=== PATIENT | female | born 1990 | race Caucasian/White ===

== ENCOUNTER 2018-04-17 19:21 | Inpatient (IN) | payer BC ==
[2018-04-17] MEDS ORDERED: Dinoprostone* 10 MG VAG.SUPP VAGINAL ONE (19:43)
[2018-04-18] MEDS ORDERED: Misoprostol TAB* 100 MCG VAGINAL ONE (09:56)
[2018-04-18] MEDS ORDERED: Misoprostol TAB* 100 MCG ONE (10:00)
--- NOTE | 2018-04-18 10:13 | PN ---
Progress Note - Progress Note Date of Service: 04/18/18 SOAP: Subjective: [Pt comfortable, does report some mild intermittent cramping Reports active FM] Objective: [Cervical exam: FT, 50%, posterior, -1 FHR 150, mod gabrielle, + accels, no decels] Assessment: [27 year old at 40 5/7 weeks gestation, not in labor, cervix still unfavorable, membranes intact, with no evidence of acidemia, Cat I tracing ] Plan: [Discussed options with pt. Needs additional cervical ripening. Will try vaginal misoprostol. Pt in agreement with plan. Monitoring per protocol. Will continue outpt status at this time. ]
--- NOTE | 2018-04-18 14:43 | PN ---
Progress Note - Progress Note Date of Service: 04/18/18 SOAP: Subjective: [Pt reports continued mild cramping, similar to before. Reports active FM. Coping well emotionally with induction. and mother at bedside, supportive. ] Objective: [Cervical exam: Posterior/ fingertip/ 60%/ -2/ softer than previous FHR Cat I Mild UCs Q 3-8 minutes] Assessment: [27 year old at 40 5/7 weeks gestation here for elective IOL No evidence of acidemia Cervical ripening occurring, but remains unfavorable for Pitocin induction at this time] Plan: [Continue augmentation. Misoprostol 25 mcg placed vaginally]
--- NOTE | 2018-04-19 00:52 | HP ---
General Information - Reason for Visit elective induction of labor - General Information Maternal Age: 27 Grav: 1 Para: 0 SAB: 0 IEA: 0 Estimated Due Date: 04/13/18 Determined By: Early Ultrasound Maternal Blood Type and Rh: O Positive - Results this Serology/RPR Result: Non-Reactive Rubella Result: Immune HBsAg Result: Negative HIV Result: Negative GBS Culture Result: Negative Past Medical History Delivery History: See Records - primiparous Pertinent Past Medical History: See Records - depression/ anxiety, chronic back pain, GERD Pertinent Past Surgical History: See Records - right foot surgery Pertinent Family History: Non-Contributory - Antepartal Records Antepartal Records: Reviewed, Uncomplicated Review of Systems Constitutional: Comfortable CV Complaint: No Respiratory: Shortness of Breath: No Gastrointestinal: No Nausea/Vomiting, Normal Bowel Movement Genitourinary: No Dysuria, No Bleeding, No Leaking Fluid Musculoskeletal: No Complaint, No Epigastric Pain Neurological: No Headache, No Visual Changes Movement: Normal Exam Allergies/Adverse Reactions: Allergies No Known Allergies Allergy (Verified 04/18/18 10:11) T-98.2, P-96, R-18, BP-139/85 - Measurements Height: 5 ft 6 in Weight: 106.594 kg Weight in lbs: 235.296201 Body Mass Index (BMI): 37.9 Pre- Weight: 86.183 kg Weight Gained This : 45 lbs and 0 ozs - Exam Breast: Breast Exam Deferred CVA: No CVA Tenderness Extremities: No Edema Heart: Normal Rhythm/Heart Sounds HEENT: No Significant Findings Lungs: Clear Bilaterally Rectal: Rectal Exam Deferred Reflexes: DTR 2+ Thyroid: No Thyromegaly - Abdominal Exam Abdomen Exam: Non-Tender, Fundal Height Consistent with Dates - Ultrasound/Biophysical Profile Ultrasound Status: Not Done Targeted Exam Findings See L&D Outpatient Visit Provider Note for Findings: Yes Estimated Weight: 8# Cervical Exam: 1cm - 1-2 cm Effacement: 60% Station: -2 Presenting Part: Vertex Membrane Status: Intact Bleeding/Discharge: None EFM Findings - External Monitor Findings Baseline Heart Rate: 150 External Monitor Findings: Accelerations Present, No Pattern of Variable or Late Decelerations, Variability Moderate, Baseline Stable Contractions: Regular, Mild, < 45 Seconds Contraction Frequency: 3 minutes Assessment/Plan - Assessment 27 year old at 40 5/7 weeks gestation undergoing cervical ripening for elective induction of labor. No evidence of acidemia - Obstetrical Risk Factors Obstetrical Risk Factors: Post-Dates - Plan Plan: Cervical Ripening, Admit - Anticipate Vaginal Delivery Plan Comment: Cervical ripening has been in place, will monitor over night and consider Pitocin vs cervical ripening in AM - Date/Time of Admission Date of Admission: 04/18/18 Time of Admission: 22:12
[2018-04-19 08:58] LABS: ABS Basophils 0.1 10^3/ul (0-0.2); ABS Eosinophils 0.1 10^3/ul (0-0.6); ABS Lymphocytes 2.8 10^3/ul (1.0-4.8); ABS Monocytes 0.7 10^3/ul (0-0.8); ABS Neutrophils 9.2 10^3/ul (1.5-7.7); ABS Nucleated RBC 0 10^3/ul; Hematocrit 35 % (35-47); Hemoglobin 11.9 g/dl (12.0-16.0); Mean Corpuscular HGB Conc 34 g/dl (31-36); Mean Corpuscular Hemoglobin 27 pg (27-31); Mean Corpuscular Volume 80 fL (80-97); Mean Platelet Volume 8.6 um3 (7.4-10.4); Nucleated Red Blood Cells % 0; Platelet Count 259 10^3/ul (150-450); Red Blood Count 4.37 10^6/ul (4.00-5.40); Red Cell Distribution Width 14 % (10.5-15); White Blood Count 12.9 10^3/ul (3.5-10.8)
[2018-04-19] MEDS ORDERED: Oxytocin in LR* 20 UNITS/1,000 ML BAG IVPB SCH (09:00)
[2018-04-20] MEDS: Oxytocin in LR* 20 UNITS/1,000 ML BAG IVPB SCH (07:51)
--- NOTE | 2018-04-20 21:46 | PN ---
Progress Note - Progress Note Date of Service: 04/20/18 - Note time 2014 SOAP: Subjective: [Pt reports contractions are stronger, feels shaky, having trouble getting comfortable. Would like VE] Objective: [Pit @ 17 VE 4-5/90/0 FHT 135, cat 1 UCs q 2-3 min, 60+ sec] Assessment: [Labor] Plan: [Discussion of using nitrous; patient declines for now, feels she is coping ok. May return to tub. ]
--- NOTE | 2018-04-20 22:52 | PN ---
Progress Note - Progress Note Date of Service: 04/20/18 SOAP: Subjective: [Pt working well w/ ctx, breathing through them, was using tub, but now out and requested vaginal exam. After finding she was 5cm she requests Nitronox. Reports active FM] Objective: [FHR tracing:Baseline 140/ + accels/ mod variability/ no decels UC's 2-3 minutes/ moderate/ 40-80 seconds, Pitocin at 15 mu/min VE: 5cm/ -1/ posterior/ 90% effaced] Assessment: [27 year old undergoing elective IOL, in active labor with ruptured membranes, requesting Nitronox Cat I FHR tracing, no evidence of acidemia] Plan: [Continue Pitocin Will order Nitronox for pain relief ]
--- NOTE | 2018-04-21 00:55 | PN ---
Progress Note - Progress Note Date of Service: 04/21/18 SOAP: Subjective: [Pt working well with ctx, reports increased pressure, some bloody show when using the bathroom, shaky, vomited x1 Pt reports Nitronox helping "take the edge off"] Objective: [Pitocin at 11 mu/min FHR- Baseline 140, moderate variability, no accels, no decels UCs Q 2-3 minutes, mod to strong ] Assessment: [Pt coping well with Nitronox Labor appears to be progressing, although cervical exam deferred at this time FHR Cat I] Plan: [Continue augmenting with Pitocin Continue Nitronox for pain relief Will do cervical exam when pt requests, with urge to push, or if no change in next couple hours]
[2018-04-21] MEDS ORDERED: OBEPIDURAL* 0 ML EPIDURAL ONE (01:52)
[2018-04-21] MEDS ORDERED: OBEPIDURAL* 250 ML EPIDURAL ONE (01:53)
--- NOTE | 2018-04-21 02:07 | PN ---
Progress Note - Progress Note Date of Service: 04/21/18 SOAP: Subjective: [Pt increasingly uncomfortable. Requested vaginal exam, 6cm/midline/ 90%/ -1. Pt requests epidural. Discussed risks and benefits, Dr. Loo notified. ] Objective: [FHR-130 baseline, mod variability, + accels, no decels, Cat I Ctx 1-3 minutes, mod to strong, 60-90 seconds Pitocin at 13 mu/ min BPs mildly elevated 130's-140's/ 80's ] Assessment: [Pt making progress, although slowly Requesting epidural No evidence of acidemia] Plan: [Labor epidural Continue Pitocin Once comfortable, alternate sides with peanut ball if tolerates]
[2018-04-21] MEDS ORDERED: Sodium Citrate/Citric Acid* 15 ML UDC PO PRN (02:19)
[2018-04-21] MEDS ORDERED: Famotidine TAB* 20 MG PO PRN (02:19)
[2018-04-21] MEDS ORDERED: Phenylephrine IV* 40 MCG/ML 10 ML SYRINGE IV PUSH PRN (02:19)
[2018-04-21] MEDS ORDERED: EPHEDrine (Pressors)* 50 MG/ML VIAL IV PUSH PRN (02:19)
--- NOTE | 2018-04-21 03:15 | PN ---
Progress Note - Progress Note Date of Service: 04/21/18 SOAP: Subjective: [] Objective: [] Assessment: [] Plan: []
[2018-04-21 03:43] LABS: ABS Basophils 0.1 10^3/ul (0-0.2); ABS Eosinophils 0 10^3/ul (0-0.6); ABS Monocytes 0.5 10^3/ul (0-0.8); ABS Neutrophils 17.8 10^3/ul (1.5-7.7); ABS Nucleated RBC 0 10^3/ul; Eosinophil % 0 % (0-6); Hematocrit 33 % (35-47); Lymphocyte % 9.8 % (25-47); Mean Corpuscular HGB Conc 33 g/dl (31-36); Mean Corpuscular Hemoglobin 26 pg (27-31); Mean Corpuscular Volume 80 fL (80-97); Mean Platelet Volume 8.9 um3 (7.4-10.4); Nucleated Red Blood Cells % 0; Platelet Count 259 10^3/ul (150-450); Red Blood Count 4.15 10^6/ul (4.00-5.40); Red Cell Distribution Width 14 % (10.5-15); White Blood Count 20.3 10^3/ul (3.5-10.8)
[2018-04-21 03:52] LABS: EGFR Non-African American 117.3 (>60); Uric Acid 5.1 mg/dL (2.3-6.6)
[2018-04-21] MEDS: OBEPIDURAL* 250 ML EPIDURAL SCH (03:59)
--- NOTE | 2018-04-21 06:55 | PN ---
Progress Note - Progress Note Date of Service: 04/21/18 SOAP: Subjective: [Previous SOAP note did not appear to save. Pt had period of elevated BP's following epidural, ranging from 134/87 to 173/84. Dr. Pineda was consulted, did not recommend antihypertensives at that time. CBC, CMP, uric acid were drawn. Since then, BPs have normalized, now ranging from 111/61 to 132/83. Bloodwork was unremarkable except for an elevated WBC of 20.3. Pt afebrile. At this time, pt reports increased pressure and shakiness. Otherwise comfortable with epidural. ] Objective: [FHR-130 baseline, moderate variability, +accels, no decels, Cat I UCs approx every 2-3 minutes, [place] adjusted Cervical exam: 9cm/ 100%/ 0 station Urine output approx 75 cc/ hr Pitocin at 13 mu/ min Membranes ruptured over 14 hours ] Assessment: Elevated BPs have resolved at this time Pt progressing well, laboring down. ] Plan: [Continue to labor down until urge to push Continue Pitocin per protocol Anticipate . ]
[2018-04-21] MEDS: Oxytocin in LR* 20 UNITS/1,000 ML BAG IVPB SCH (08:54)
[2018-04-21] MEDS ORDERED: fentaNYL* 50 MCG/ML 2 ML VIAL (100 MCG VIAL) ONE (10:21)
[2018-04-21] MEDS ORDERED: fentaNYL* 50 MCG/ML 2 ML VIAL (100 MCG VIAL) IV SLOW PU ONE (10:45)
[2018-04-21] MEDS ORDERED: Witch Hazel PAD* JAR TOPICAL PRN (11:18)
[2018-04-21] MEDS ORDERED: Glycerin ADULT SUPP PR PRN (11:18)
[2018-04-21] MEDS: Docusate CAP* 100 MG PO SCH (15:44)
--- NOTE | 2018-04-21 17:09 | PROCNOTE ---
[facility] OB: Delivery Note - Delivery A Date of : 04/21/18 Time of : 09:57 [place] Sex: Male Weight at : 3.625 kg Score 1 Minute: 9 Score 5 Minutes: 9 Gestational Age in Weeks and Days at Delivery: 41 Weeks and 1 Days Delivery Method: Spontaneous Vaginal Labor: Induced Did Patient attempt ?: N/A, No Previous Amniotic Fluid: Clear Estimated Blood Loss: 300 Anesthesia/Analgesia: CEI for Labor, Nitrous-Labor Delivered By: Slime Washburn - Nursery Level of Nursery: Regular/Bedside - Perineum Perineal Injury: Perineal Laceration, 1st Degree Perineal Repair: By Delivering Practioner - Events Delivery Events of Note: Pitocin During Labor, Protracted/Long Labor - Additional Delivery Notes Additional Delivery Notes: Pt admitted on 04/18/18 for elective induction of labor at 40 5/7 weeks gestation. Cervical ripening done with Cervidil, Cytotec, and Sandoval bulb. Pitocin was then initiated. Pt used nitrous oxide for pain relief for several hours before requesting and receiving epidural. She then rested and continued to labor until full dilation and an urge to push. Pt pushed with good effort and made consistent progress despite contractions only occurring every 5 or more minutes. Pt progressed to . Infant head delivered OA to SERGIO w/ turtle sign. Emergency montoya initiated for possible shoulder dystocia, but shoulders then delivered without difficulty with next push. placed on maternal abdomen, dried and stimulated with vigorous cry. After waiting for pulsation to cease, cord clamped and cut by 's father. Placenta delivered , spontaneous and zarate. Pitocin increased to 250 cc/ hr. Fundas was firm with minimal bleeding. Pt sustained first degree perineal laceration, repaired using absorbable suture with good tissue approximation and hemostasis. breastfed during repair. Pt and in stable condition, anticipate normal course.
[2018-04-21] MEDS: Ibuprofen TAB* 600 MG PO PRN (17:47)
[2018-04-22] MEDS: Docusate CAP* 100 MG PO SCH ×5 (00:12→20:20)
[2018-04-22] MEDS: Acetaminophen TAB* 325 MG PO PRN ×2 (00:12→16:25)
[2018-04-22] MEDS: Ibuprofen TAB* 600 MG PO PRN ×4 (00:12→20:17)
[2018-04-22 07:10] LABS: ABS Basophils 0 10^3/ul (0-0.2); ABS Eosinophils 0.1 10^3/ul (0-0.6); ABS Lymphocytes 4.1 10^3/ul (1.0-4.8); ABS Monocytes 0.8 10^3/ul (0-0.8); ABS Neutrophils 6.5 10^3/ul (1.5-7.7); ABS Nucleated RBC 0 10^3/ul; Eosinophil % 1.1 % (0-6); Hematocrit 30 % (35-47); Hemoglobin 9.8 g/dl (12.0-16.0); Lymphocyte % 35.5 % (25-47); Mean Corpuscular HGB Conc 33 g/dl (31-36); Mean Corpuscular Hemoglobin 27 pg (27-31); Mean Corpuscular Volume 80 fL (80-97); Mean Platelet Volume 8.1 um3 (7.4-10.4); Nucleated Red Blood Cells % 0; Platelet Count 226 10^3/ul (150-450); Red Blood Count 3.68 10^6/ul (4.00-5.40); Red Cell Distribution Width 15 % (10.5-15); White Blood Count 11.6 10^3/ul (3.5-10.8)
[2018-04-22] MEDS: Ferrous Gluconate TAB* 324 MG TAB PO SCH ×2 (09:43→20:17)
[2018-04-22] MEDS: Dibucaine 1% 28.35 GM TUBE PR PRN (11:32)
[2018-04-22] MEDS: OBEPIDURAL* 250 ML EPIDURAL SCH (19:14)
[2018-04-23 08:00] VITALS: BP 117/65
[2018-04-23] MEDS: Ibuprofen TAB* 600 MG PO PRN (08:20)
[2018-04-23] MEDS: Ferrous Gluconate TAB* 324 MG TAB PO SCH (08:20)
[2018-04-23] MEDS: Dibucaine 1% 28.35 GM TUBE PR PRN (12:09)
== END 2018-04-23 12:31 | disposition home or self-care (01) | DRG 560 ==
LOC: MCHOBOUT 19:21 → MCHOB 04-18 22:12
PROVIDERS: ADMIT Midwife; ATTEND Midwife
PROC: 10E0XZZ Delivery of Products of Conception, External Approach (ICD-10-PCS; principal; 2018-04-21)
PROC: 3E033VJ Introduction of Other Hormone into Peripheral Vein, Percutaneous Approach (ICD-10-PCS; 2018-04-21)
PROC: 10907ZC Drainage of Amniotic Fluid, Therapeutic from Products of Conception, Via Natural or Artificial Opening (ICD-10-PCS; 2018-04-21)
PROC: 0HQ9XZZ Repair Perineum Skin, External Approach (ICD-10-PCS; 2018-04-21)
DX: O48.0 Post-term pregnancy (principal); O70.0 First degree perineal laceration during delivery; O90.81 Anemia of the puerperium; D64.9 Anemia, unspecified; Z3A.41 41 weeks gestation of pregnancy; Z37.0 Single live birth
CPT/HCPCS: 36415; 80053; 84550; 85025; 86850; 86900; 86901; A9270-GY; J3010; S0191

== ENCOUNTER 2019-08-30 12:03 | Day surgery (SDC) | payer BC ==
[~2019-08-30 12:03] MED LIST: Buffered Lidocaine 1% SYRIN* 1 ML/SYRINGE INTRADERM ONE; Dexamethasone IV* 4 MG/ML 1 ML (4 MG) IV SLOW PU ONE; Famotidine IV* 10 MG/ML 2 ML (20 mg) IV ONE; Lactated Ringers 1000 ML Bag* 1,000 ML IV SCH
[2019-08-30] MEDS ORDERED: ROPIVACAINE 5 MG/ML 30 ML BTL (0.5%) ONE (12:57)
[2019-08-30] MEDS ORDERED: Buffered Lidocaine 1% SYRIN* 1 ML/SYRINGE INTRADERM ONE (13:47)
[2019-08-30] MEDS ORDERED: Famotidine IV* 10 MG/ML 2 ML (20 mg) ONE (13:59)
[2019-08-30] MEDS ORDERED: fentaNYL* 50 MCG/ML 2 ML VIAL (100 MCG VIAL) IV PRN (13:59)
[2019-08-30] MEDS ORDERED: DiMENhydriNATE IV* 50 MG/ML VIAL IV PUSH PRN (13:59)
[2019-08-30] MEDS ORDERED: HYDROcodone/ACETAMIN 5-325 MG* 1 TAB PO PRN (13:59)
[2019-08-30] MEDS ORDERED: Dexamethasone IV* 4 MG/ML 1 ML (4 MG) ONE (13:59)
[2019-08-30] MEDS ORDERED: Ibuprofen TAB* 600 MG PO PRN (13:59)
[2019-08-30] MEDS ORDERED: oxyCODONE/Acetamin 5/325 MG* TAB PO PRN (13:59)
[2019-08-30] MEDS ORDERED: Naloxone* 0.4 MG/ML 1 ML VIAL IV PRN (13:59)
[2019-08-30] MEDS ORDERED: fentaNYL* 50 MCG/ML 2 ML VIAL (100 MCG VIAL) ONE (14:24)
[2019-08-30] MEDS ORDERED: Midazolam* 1 MG/ML 5 ML VIAL (5 MG) ONE (14:24)
[2019-08-30] MEDS ORDERED: Propofol* 10 MG/ML 20 ML BTL ONE (14:25)
[2019-08-30] MEDS ORDERED: Succinylcholine* 20 MG/ML 10 ML VIAL ONE (14:25)
[2019-08-30] MEDS ORDERED: Lidocaine 2% PF * 5 ML VIAL ONE (14:27)
[2019-08-30] MEDS ORDERED: Ondansetron INJ* 2 MG/ML VIAL ONE (15:22)
[2019-08-30 17:17] VITALS: BP 129/87
--- NOTE | 2019-08-30 23:03 | OP ---
OPERATIVE REPORT: DATE OF OPERATION: 08/30/19 - SDS DATE OF : 89 SURGEON: Kael Albarado MD VECTOR CONTROL SPECIALIST: None. ANESTHESIOLOGIST: Renata Sands MD ANESTHESIA: General. PRE-OP DIAGNOSIS: Chronic tonsillitis. POST-OP DIAGNOSIS: Chronic tonsillitis. OPERATIVE PROCEDURE: Bilateral tonsillectomy. ESTIMATED BLOOD LOSS: Approximately 20 cc. SPECIMENS: Right and left tonsils. DESCRIPTION OF PROCEDURE: This is a 28-year-old woman with chronic tonsillitis who was brought to the operating room. General anesthesia was induced and an oral endotracheal tube was placed. The table was turned, the patient was draped , and a time-out was performed. A McIvor mouth gag was used to facilitate exposure of the oropharynx and was suspended from the [place] stand. The right tonsil was grasped with straight Allis forceps, retracted medially, and dissected free of its fossa with a coblation device at a setting of 7 and 3. There was a small amount of bleeding during this dissection, which was easily controlled with a bipolar function on the device. The left tonsil was then removed in an identical fashion, again with a small amount of bleeding which was easily controlled with the bipolar device. Once both tonsils were removed, the tonsillar fossas were inspected. The superior and inferior pole regions were prophylactically cauterized with the bipolar function at a setting of 5. The mouth gag was then let down for a period of a minute. It was then opened again. There was no evidence of active bleeding. An orogastric tube was passed into the stomach. The stomach contents were evacuated. The patient was then returned to the care of the anesthesiologist, extubated, and delivered to the PACU in stable condition. [id number]/CPS #: [id number] MTDD
== END 2019-08-30 17:19 | disposition home or self-care (01) ==
LOC: OR 12:03
PROVIDERS: ATTEND Otolaryngology
DX: J03.01 Acute recurrent streptococcal tonsillitis (principal); K21.9 Gastro-esophageal reflux disease without esophagitis
CPT/HCPCS: 81025; 88304; J0330; J1100; J2250; J2405; J2704; J2795; J3010